=== PATIENT | female | born 1935 | race Caucasian/White ===

== ENCOUNTER 2017-12-15 07:20 | Emergency (ER) | payer MEDICARE, OTHER ==
[2017-12-15] MEDS ORDERED: GLUCAGON,HUMAN RECOMBINANT 1 MG/ML VIAL. (07:54)
[2017-12-15] MEDS: GLUCAGON,HUMAN RECOMBINANT 1 MG/ML VIAL. IV (08:07)
[2017-12-15 08:16] LABS: ADD MAN DIFF? NO
[2017-12-15 08:17] LABS: BASO % 0 % (0-3); EOS # 0.1 x10^3/uL (0.0-0.7); EOS % 1 % (0-3); HEMATOCRIT 42.3 % (36.0-47.0); HEMOGLOBIN 14.6 g/dL (12.0-15.5); LYMPH # 1.4 x10^3/uL (1.0-4.8); LYMPH % 19 % (24-48); MEAN CORPUSCULAR HEMOGLOBIN 31 pg (25-35); MEAN CORPUSCULAR HGB CONC 34 g/dL (31-37); MEAN CORPUSCULAR VOLUME 89 fL (79-100); MONO # 0.5 x10^3/uL (0.0-1.1); MONO % 7 % (0-9); NEUT # 5.3 x10^3uL (1.8-7.7); NEUT % 72 % (31-73); PLATELET COUNT 235 x10^3/uL (140-400); RED BLOOD COUNT 4.78 x10^6/uL (3.50-5.40); RED CELL DISTRIBUTION WIDTH 14.1 % (11.5-14.5); WHITE BLOOD COUNT 7.4 x10^3/uL (4.0-11.0)
[2017-12-15 08:27] LABS: ANION GAP 9 (6-14); BLOOD UREA NITROGEN 15 mg/dL (7-20); BUN/CREATININE RATIO 19 (6-20); CALCIUM 10.1 mg/dL (8.5-10.1); CARBON DIOXIDE 25 mmol/L (21-32); CHLORIDE 104 mmol/L (98-107); CREATININE 0.8 mg/dL (0.6-1.0); GFR 68.7; GLUCOSE 145 mg/dL (70-99); POTASSIUM 3.7 mmol/L (3.5-5.1); SODIUM 138 mmol/L (136-145)
[2017-12-15 08:32] LABS: INR 1.2 (0.8-1.1); PROTHROMBIN TIME PATIENT 14.2 SEC (11.7-14.0)
[2017-12-15 08:33] LABS: ALBUMIN 3.9 g/dL (3.4-5.0); ALBUMIN/GLOBULIN RATIO 0.8 (1.0-1.7); ALK PHOS 96 U/L (46-116); ALT (SGPT) 22 U/L (14-59); AST (SGOT) 17 U/L (15-37); TOTAL BILIRUBIN 0.8 mg/dL (0.2-1.0); TOTAL PROTEIN 8.5 g/dL (6.4-8.2)
[2017-12-15] MEDS ORDERED: fentaNYL PF VIAL 100 MCG/2 ML VIAL (09:42)
[2017-12-15] MEDS ORDERED: MIDAZOLAM HCL/PF 5 MG/5 ML VIAL. (09:43)
[2017-12-15] MEDS ORDERED: fentaNYL PF VIAL 100 MCG/2 ML VIAL IV ×2 (09:45)
[2017-12-15] MEDS ORDERED: LIDOCAINE 1% PF 2 ML VIAL. ID (09:45)
[2017-12-15] MEDS ORDERED: MIDAZOLAM HCL/PF 2 MG/2 ML VIAL. IV (09:45)
[2017-12-15] MEDS: IV RINGERS,LACTATED 1000ML 1,000 ML IV (09:46)
[2017-12-15] MEDS: MIDAZOLAM HCL/PF 5 MG/5 ML VIAL. IV ×3 (09:53→10:00)
[2017-12-15] MEDS: fentaNYL PF VIAL 100 MCG/2 ML VIAL IV (09:55)
== END 2017-12-15 09:30 | disposition home or self-care (01) ==
LOC: ER 07:20
DX: T18.128A Food in esophagus causing other injury, initial encounter (principal); K22.2 Esophageal obstruction; K21.9 Gastro-esophageal reflux disease without esophagitis; E11.9 Type 2 diabetes mellitus without complications; E78.00 Pure hypercholesterolemia, unspecified; I10 Essential (primary) hypertension; X58.XXXA Exposure to other specified factors, initial encounter; Y93.89 Activity, other specified; Y99.8 Other external cause status; Y92.89 Other specified places as the place of occurrence of the external cause
CPT/HCPCS: 36415; 71045; 80053; 85025; 85610; 99285-25; G0500; J1610; J2250; J3010; J7120

== ENCOUNTER → 2019-08-18 | Outpatient (CLI) | payer MEDICARE, OTHER ==
[2017-12-15 10:28] VITALS: BP 167/74
--- NOTE | 2019-08-18 17:35 | RAD ---
Renal ultrasound HISTORY: Uterine prolapse. Evaluate for ureteric obstruction. FINDINGS: Right kidney measures 9.6 x 5.6 x 4.3 cm with moderate hydronephrosis. No obvious shadowing calculus or focal mass. Left kidney measures 9.8 x 3.8 x 4.8 cm with mild hydronephrosis. No obvious shadowing calculus or focal mass of the left kidney. Urinary bladder is nondistended, and cannot be evaluated. IMPRESSION: Bilateral hydronephrosis, right greater than left, could be due to distal ureteric obstruction or compression. Electronically signed by: Marquez Win MD (08/18/2019 5:32 PM) [id number]
== END | disposition home or self-care (01) ==
LOC: US 14:59
PROVIDERS: ATTEND Obstetrics & Gynecology Gynecology
DX: N13.30 Unspecified hydronephrosis (principal); N81.4 Uterovaginal prolapse, unspecified
CPT/HCPCS: 76770

== ENCOUNTER → 2019-08-28 | Outpatient (CLI) | payer MEDICARE, OTHER ==
[2017-12-15 10:28] VITALS: BP 167/74
--- NOTE | 2019-08-28 16:56 | RAD ---
PELVIS LIMITED OR FOLLOW UP, RENAL COMPLETE BILATERAL History: Bilateral hydronephrosis secondary to prolapsed uterus Comparison: 08/18/2019 renal ultrasound Findings: Multiple sonographic images of the kidneys and retroperitoneal structures are submitted. There is no left hydronephrosis on this exam. Mild right hydronephrosis has decreased in the interval. Right kidney measured 9.2 x 4.8 x 4.1 cm. Left kidney measured 10.4 x 4.2 x 4.5 cm. There is segmental visualization of the inferior vena cava. Abdominal aortic caliber is within normal limits up to 2.1 cm proximally, scattered plaque present. Urinary bladder and the uterus could not be visualized by ultrasound, reportedly prolapsed. No free fluid is demonstrated. Impression: 1. There is no left hydronephrosis, mild right hydronephrosis decreased in the interval. 2. Uterus and the urinary bladder could not be visualized, reportedly prolapsed. Electronically signed by: Wood Ingram MD (08/28/2019 4:53 PM) [id number]
== END | disposition home or self-care (01) ==
LOC: US 14:04
PROVIDERS: ATTEND Obstetrics & Gynecology Gynecology
DX: N81.4 Uterovaginal prolapse, unspecified (principal); I70.0 Atherosclerosis of aorta
CPT/HCPCS: 76770; 76857

== ENCOUNTER → 2020-03-08 | Outpatient (CLI) | payer OTHER ==
[2017-12-15 10:28] VITALS: BP 167/74
[~2020-03-08] MED LIST: FUROSEMIDE 40 MG/4 ML VIAL. IVP ONE
--- NOTE | 2020-03-08 17:03 | RAD ---
Renal scan 03/08/2020 CLINICAL HISTORY: Bilateral hydronephrosis. TECHNIQUE: After the intravenous administration of 5 mCi of technetium 99m MAG3, imaging of the abdomen and pelvis was performed using the gamma camera for 11 minutes. The patient was tolerated unable to tolerate any further imaging due to her need to void. The patient voided prior to starting the study. Intravenous Lasix was unable to be administered. FINDINGS: Comparison is made to patient's renal ultrasound dated 08/28/2019. The study is limited as that only 11 minutes of acquisition time were allowed by the patient. Intravenous Lasix was unable to be administered. Normal perfusion, uptake and excretion of the radionuclide by both kidneys is seen. Activity is seen within both intrarenal collecting systems and both ureters with gradual accumulation of activity within the urinary bladder. There is no evidence of obstruction of either collecting system. IMPRESSION: There is no evidence of obstruction of either collecting system. Electronically signed by: Keith Wiley MD (03/08/2020 5:00 PM) [id number]
== END | disposition home or self-care (01) ==
LOC: NM 13:12
PROVIDERS: ATTEND Urology
DX: N13.5 Crossing vessel and stricture of ureter without hydronephrosis (principal)
CPT/HCPCS: 78707; 96374; A9562